=== PATIENT | female | born 1960 | race Caucasian/White ===

== ENCOUNTER 2018-09-17 13:01 | Emergency (ER) | payer OTHER ==
[~2018-09-17] VITALS: Ht 157.5 cm; Wt 88.6 kg
[2018-09-17] MEDS ORDERED: PHENYLEPHRINE NASAL 1%, 15ML SPRAY ONE (13:21)
[2018-09-17] MEDS ORDERED: SILVER NITRATE STICK TP ONE ×2 (13:21→13:30)
[2018-09-17] MEDS ORDERED: PHENYLEPHRINE NASAL 1%, 15ML SPRAY NAS ONE (13:30)
--- NOTE | 2018-09-17 13:35 | NUR ---
LATE NOTE ENTRY FOR 1307: Pt presents to ED by EMS with c/o epistaxis starting last night. Pt is hypertensive with EMS with BP AT 240/140 then recheck with EMS was 193/121. Pt takes amlodipine at night. Pt took medication last night for blood ressure. Pt resting on ENT chair with nose clamp and gauze. Suction set up at bedside. ENT tray and epistaxis supplies set up at bedside. Medications provided for availability per [facility]. JUANN. Pt ambulates with sba with RN to bathroom with steady gait and balance. No defecits observed.
[2018-09-17] MEDS ORDERED: TRAM100T33 PO (14:00)
[2018-09-17] MEDS ORDERED: AMLO-150 PO (14:00)
[2018-09-17] MEDS ORDERED: keppra PO (14:00)
[2018-09-17] MEDS ORDERED: OXYC10TA6 PO (14:00)
[2018-09-17 14:04] LABS: BASOPHILS # (AUTO) 0.05 x10^3/uL (0-0.1); BASOPHILS % (AUTO) 1 % (0-1); EOSINOPHILS # (AUTO) 0.12 x10^3/uL (0-0.4); EOSINOPHILS % (AUTO) 1 % (1-7); LYMPHOCYTES # (AUTO) 2.28 x10^3/uL (1-3.4); LYMPHOCYTES % (AUTO) 22 % (22-44); MD NO; MEAN CORPUSCULAR HEMOGLOBIN 30.4 pg (27.0-34.8); MEAN CORPUSCULAR HGB CONC 33.4 g/dL (32.4-35.8); MEAN CORPUSCULAR VOLUME 91.1 fL (80-100); MEAN PLATELET VOLUME 7.8 fL (7.4-10.4); MONOCYTES # (AUTO) 0.58 x10^3/uL (0.2-0.8); MONOCYTES % (AUTO) 6 % (2-9); NEUTROPHILS # (AUTO) 7.25 x10^3/uL (1.8-6.8); NEUTROPHILS % (AUTO) 71 % (42-75); PLATELET COUNT 371 x10^3/uL (130-400); RED BLOOD COUNT 4.43 x10^6/uL (3.82-5.3); RED CELL DISTRIBUTION WIDTH 14.4 % (9.6-15.2)
--- NOTE | 2018-09-17 15:07 | NUR ---
Patient given discharge instructions and they have confirmed that they understand the instructions. Patient ambulatory with steady gait. Pt left with all personal belongings and discharge paperwork.
[2018-09-17 15:08] VITALS: BP 133/93
== END 2018-09-17 15:10 | disposition home or self-care (01) ==
LOC: ED 14:34
DX: R04.0 Epistaxis (principal); I10 Essential (primary) hypertension
CPT/HCPCS: 30901; 36415; 85025; 99284